=== PATIENT | female | born 1995 | race American Indian/Alaskan Native ===

== ENCOUNTER 2019-06-05 16:37 | Emergency (ER) | payer SELFPAY ==
--- NOTE | 2019-06-05 16:46 | Emergency Department Report ---
Blank Doc - Documentation Documentation: This is a 24-year-old female that presents with right knee pain. This initial assessment/diagnostic orders/clinical plan/treatment(s) is/are subject to change based on patient's health status, clinical progression and re- assessment by fellow clinical providers in the ED. Further treatment and workup at subsequent clinical providers discretion. Patient/guardians urged not to elope from the ED as their condition may be serious if not clinically assessed and managed. Initial orders include: 1- Patient sent to [facility] for further evaluation and treatment 2- xray
--- NOTE | 2019-06-05 17:31 | XRay Report ---
RIGHT KNEE 3 VIEWS INDICATION / CLINICAL INFORMATION: Right medial knee pain for 2 weeks. COMPARISON: None available. FINDINGS: BONES / JOINT(S): The joint spaces are well-maintained. There is no evidence of fracture, dislocation , destructive lesion or joint effusion. SOFT TISSUES: No significant abnormality. ADDITIONAL FINDINGS: None. IMPRESSION: Negative study. Signer Name: Edwin Agee MD Signed: 06/05/2019 5:27 PM Workstation Name: [id number]
[2019-06-05] MEDS ORDERED: IBUPROFEN PO ONE (19:17)
--- NOTE | 2019-06-05 19:40 | Emergency Department Report ---
ED Back Pain/Injury HPI - General Chief Complaint: Extremity Injury, Lower Stated Complaint: RT LEG/KNEE PAIN Time Seen by Provider: 06/05/19 16:44 Source: patient Limitations: No Limitations - History of Present Illness Initial Comments: 24 YO RIGHT KNEE PAIN. NO TRAUMA. NO MED HX AMBULATORY TO ER HAS DONE NOTHING TO MAKE BETTER [employer] Similar Symptoms Previously: No Place: home Severity: mild - Related Data Previous Rx's Medication Instructions Recorded Last Taken Type Ibuprofen [Motrin] 800 mg PO Q8HR PRN #20 tablet 06/05/19 Unknown Rx Allergies Allergy/AdvReac Type Severity Reaction Status Date / Time No Known Allergies Allergy Unverified 06/05/19 16:43 ED Review of Systems ROS: Stated complaint: RT LEG/KNEE PAIN Other details as noted in HPI Comment: All other systems reviewed and negative ED Past Medical Hx - Past Medical History Medical history: no medical history Surgical history: no surgical history ED Back Pain Physical Exam - Exam General: Vital signs noted. No distress. Alert and acting appropriately. DP PLUS 2 B NO EFFUSION NO JOINT LINE TENDERNESS NO BACKERS CYST FULL ROM CO PAIN WITH MOVEMENT NO FALL OR TRAUMA NO PRIOR HX THIGH AND LOWER EXTREMITY WNL Back/Abdomen: No Abdominal Tenderness, No Perithoracic Tenderness, No Perilumbar Tenderness, No Sacroiliac Tenderness, No Flank Tenderness, No Straight Leg Raise Pain Neuro: Yes Normal Sensation, Yes Normal DTR's, Yes Normal Gait, No Motor Weakness Ed Back Pain Tests - Tests Tests: Normal X Rays ED Medical Decision Making - Radiology Data Radiology results: report reviewed, image reviewed - Medical Decision Making XRAY NEG EXAM WNL NEUROVASC INTACT UPPER AND LOWER LEG WNL CONSERVATIVE MANAGEMENT DC HOME WITH DC PLAN OF CARE AND ORTHO FOLLOW UP - Differential Diagnosis RO EFFUSION Critical care attestation.: If time is entered above; I have spent that time in minutes in the direct care of this critically ill patient, excluding procedure time. ED Disposition Clinical Impression: Knee pain Disposition: DC-01 TO HOME OR SELFCARE Is pt being admited?: No Does the pt Need Aspirin: No Condition: Stable Instructions: Knee Pain (ED) Additional Instructions: ALTERNATE ICE/ HEAT MOTRIN 800 MG BY MOUTH WITH FOOD EVERY 8 HOURS ELEVATE/REST NO HEAVY ACTIVITY IF IN 1 WEEK NO BETTER FOLLOW UP WITH DR MCCLELLAND, ORTHO MD REFERRAL BELOW Prescriptions: Ibuprofen [Motrin] 800 mg PO Q8HR PRN #20 tablet PRN Reason: Pain , Severe (7-10) Referrals: GABRIELLA MCCLELLAND MD [Staff Physician] - 3-5 Days Time of Disposition: 19:38
== END 2019-06-05 20:00 | disposition home or self-care (01) ==
LOC: ED 16:37
DX: M25.561 Pain in right knee (principal)

== ENCOUNTER 2022-08-11 10:41 | Emergency (ER) | payer SELFPAY ==
[2022-08-11 11:00] VITALS: BP 127/50
--- NOTE | 2022-08-11 16:20 | Emergency Department Report ---
Abscess Boil HPI - HPI Chief Complaint: Extremity Injury, Upper Stated Complaint: HAND INJURY Duration: 1 Day Location: Upper Extremity Severity: Mild History: Yes Pain, No Fever, No Purulent Drainage, No Numbness, No Foreign Body, No Previous History, No Insect Bite HPI: Patient is a 27-year-old female that comes in with a left index finger paronychia. Home Medications: Previous Rx's Medication Instructions Recorded Last Taken Type Amoxicillin [Trimox CAP] 500 mg PO BID #20 capsule 08/11/22 Unknown Rx Allergies/Adverse Reactions: Allergies Allergy/AdvReac Type Severity Reaction Status Date / Time No Known Allergies Allergy Verified 08/11/22 11:01 ED Review of Systems ROS: Stated complaint: HAND INJURY Other details as noted in HPI Comment: All other systems reviewed and negative ED Past Medical Hx - Past Medical History Previous Medical History?: No - Surgical History Past Surgical History?: No - Family History Family history: no significant - Social History Smoking Status: Never Smoker Substance Use Type: Alcohol - Medications Home Medications: Home Medications Medication Instructions Recorded Confirmed Last Taken Type Amoxicillin [Trimox CAP] 500 mg PO BID #20 capsule 08/11/22 Unknown Rx ED Abscess Boil Physical Exam - Exam General: Vital signs noted. No distress. Alert and acting appropriately. Size: 1 cm Exam: Yes Tenderness, Yes Fluctuance, Yes Normal Neurologic Exam, Yes Normal Circulation, No Surrounding Cellulites/Erythema, No Lymphangitis, No Crepitation, No Heart Murmur I & D Note - I & D Note I & D Note: needle used to open wound. immediate relief of pain. wound cleaned and dresssed. pt tolerated well ED Course Vital Signs 08/11/22 10:58 Temperature 99.0 F Pulse Rate 72 Respiratory 18 Rate Blood Pressure 127/50 [Right] O2 Sat by Pulse 100 Oximetry Critical care attestation.: If time is entered above; I have spent that time in minutes in the direct care of this critically ill patient, excluding procedure time. ED Medical Decision Making - Medical Decision Making Vital Signs 08/11/22 10:58 Temperature 99.0 F Pulse Rate 72 Respiratory 18 Rate Blood Pressure 127/50 [Right] O2 Sat by Pulse 100 Oximetry Simple I&D. Wound care provided Patient being discharged home with discharge plan of care including diet, activity, medications and follow-up. She verbalizes understanding. - Differential Diagnosis Simple paronychia ED Disposition Clinical Impression: Paronychia Disposition: 01 HOME / SELF CARE / HOMELESS Is pt being admited?: No Does the pt Need Aspirin: No Condition: Stable Instructions: Paronychia, [id number] Additional Instructions: medications as ordered soak wound as we discussed follow up with pcp next week if needed referral below over the counter motrin or tylenol for pain Prescriptions: Amoxicillin [Trimox CAP] 500 mg PO BID #20 capsule Referrals: DEMETRIO STEPHENSON MD [Staff Physician] - 3-5 Days Forms: Work/School Release Form(ED) Time of Disposition: 16:22
[2022-08-11] MEDS ORDERED: IBUPROFEN 800 MG TAB PO ONE (16:21)
[2022-08-11] MEDS ORDERED: AMOXICILLIN 500 MG CAP PO ONE (16:21)
== END 2022-08-11 16:47 | disposition home or self-care (01) ==
LOC: ED 10:41
DX: L03.011 Cellulitis of right finger (principal); Z72.89 Other problems related to lifestyle; Z79.899 Other long term (current) drug therapy
CPT/HCPCS: 99282